=== PATIENT | male | born 1940 | race Caucasian/White ===

== ENCOUNTER 2021-03-18 07:24 | Day surgery (SDC) | payer OTHER, SELFPAY ==
[2021-03-18 07:47] VITALS: BP 136/72; PULSE 72; RESP 16; TEMP 36.1; O2SAT 100
--- NOTE | 2021-03-18 07:52 | W.ANESPRE ---
General Info Date of Service Date Performed: 03/18/21 Height: 5 ft 11 in Weight: 72.3 kg Body Mass Index (BMI): 22.2 Surgical Procedure: Operation Date: 03/18/21 09:40 Proposed Procedures Side Surgeon p Cataract Extraction with IOL Implant Right Yordy Nickerson MD Meds Allergies and Home Medications Allergies Allergy/AdvReac Type Severity Reaction Status Date / Time No Known Allergies Allergy Unverified 03/15/21 14:59 Home Medication Medication Instructions Recorded bupropion HCl 300 mg PO DAILY 03/15/21 cholecalciferol (vitamin D3) 50 mcg PO DAILY 03/15/21 [Vitamin D3] finasteride 5 mg PO DAILY 03/15/21 ibuprofen 200 mg PO DAILY PRN 03/15/21 loratadine 10 mg PO DAILY 03/15/21 lorazepam 0.5 mg PO Q6H PRN 03/15/21 lutein 20 mg PO DAILY 03/15/21 omega-3 fatty acids [Fish Oil] 1 cap PO DAILY 03/15/21 phytonadione (vitamin K1) 100 mcg PO DAILY 03/15/21 sennosides-docusate sodium [Senna 1 cap PO DAILY 03/15/21 Plus] tadalafil 20 mg PO DIRECTED PRN 03/15/21 Current Visit Medications: Current Medications Generic Name Dose Route Start Last Admin Trade Name Freq PRN Reason Stop Dose Admin Acetaminophen 1,000 mg 03/18/21 06:00 Acetaminophen 500 Mg Tab PO Q4H PRN PRN Miscellaneous Medication 0 ml 03/18/21 06:00 Prednisolone 1%, Moxifloxacin 0.5%, Nepafenac 0.1% 5ml Btl OD DIRECTED [facility] Miscellaneous Medication 0 ml 03/18/21 06:00 Tropicam./Phenyleph. 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 Posterior vitreous detachment, left eye Presbyopia Vertigo Surgical History Surgical History (Updated 03/18/21 @ 07:44 by Jesse Childers) History of appendectomy History of tonsillectomy Tobacco Smoking/Tobacco Use Status: Never Alcohol Alcohol Intake: current Alcohol intake frequency: holidays/special occasions only Substance Use Substance use type: does not use Vital Signs and Lab Results Vital Signs Most Recent Vital Signs in EMR: Most Recent Vital Signs Temp Pulse Resp BP Pulse Ox 36.1 C L 72 16 136/72 100 03/18/21 07:47 03/18/21 07:47 03/18/21 07:47 03/18/21 07:47 03/18/21 07:47 Lab Results Blood Type / Crossmatch: No Data to Display Complete Blood Count: No Data to Display Complete Metabolic Panel: No Data to Display Liver Function Panel: No Data to Display Coagulation Panel: No Data to Display Cardiac Panel: No Data to Display Arterial Blood Gas: No Data to Display Venous Blood Gas: No Data to Display Pancreas Panel: No Data to Display Thyroid Panel: No Data to Display Infectious Disease: No Data to Display Blood Cultures: No Data to Display Toxicology Panel: No Data to Display Anesthesia Assessment and Plan Anesthesia History Personal History: No History of Anesthesia Complications Family History: No Family History of Anesthesia Complications Exercise Tolerance Exercise Tolerance: Metabolic Equivalents>4 Pertinent Negatives Pertinent Negatives: No Symptoms of GERD Cardiac & Pulmonary Exam Cardiac Exam: Normal S1/S2 Heart Sounds Pulmonary Exam: Clear Bilateral Breath Sounds Airway Exam Known Difficult Airway: No Mallampati Class: 2 Mouth Opening: Normal (> 3cm) Thyromental Distance: Greater than 3 cm Neck Range of Motion: Full ROM Neck Circumference: Normal Teeth Condition: Normal Dentition ASA Classification ASA Score: ASA 2 Emergency Case?: No NPO Status NPO Status: NPO Clears >2 hours, Solids >8 hours Anesthesia Plan Resuscitation Status: Full Code Anesthesia Technique: MAC Anesthesia Airway Planned: Natural Airway Monitors Used: Standard Monitors
[2021-03-18] MEDS: Tropicam./Phenyleph. (1/2.5%) 5 ML BTL OD ×3 (07:53→08:05)
[2021-03-18 08:16] VITALS: BMI 22.2
[2021-03-18] MEDS: Lidocaine 2% Jelly 6 ML SYR (10:10)
[2021-03-18] MEDS: Tetracaine 0.5% 4 ML BTL OD (10:10)
[2021-03-18] MEDS: Balanced Salt Soln.-PLUS 500 ML BAG (10:10)
[2021-03-18] MEDS: Duovisc Viscoelastic System EACH 1 EACH (10:10)
[2021-03-18] MEDS: Lidocaine 1% Pres-Free 5 ML VIAL (10:10)
[2021-03-18] MEDS: Povidone-Iodine Ophth 30 ML BTL (10:10)
--- NOTE | 2021-03-18 10:21 | W.ANESPOSTOP ---
Postoperative Evaluation Date, Time and Location Date Performed: 03/18/21 Time Performed: 10:30 Patient Location: Day Surgery Unit Vital Signs Most Recent Imported Vital Signs: Most Recent Vital Signs Temp Pulse Resp BP Pulse Ox 36.1 C L 72 16 136/72 100 03/18/21 07:47 03/18/21 07:47 03/18/21 07:47 03/18/21 07:47 03/18/21 07:47 Most Recent Manually Entered Vital Signs: Adult Blood Pressure: 137/86 Heart Rate: 70 Respirations: 16 Oxygen Saturation (%): 100 Temperature (C): 36.2 C Pain Score (0-10 Scale): 0 Pain Score Most Recent Pain Score: Most Recent Pain Score Pain Level 0 03/18/21 07:47 Assessment Mental Status: Awake (Alert & Oriented to Patient Baseline) Airway and Respiratory Function: Patent airway with normal (patient baseline) respiratory exam Cardiovascular Function: Hemodynamically Stable Hydration Status: Adequately Hydrated Nausea & Vomiting: No Nausea or Vomiting Pain: Pt. Denies Any Pain Peripheral Nerve Block: Other (Local by Dr. Nickerson) Postoperative Comments:: Patient would like MKO next time
--- NOTE | 2021-03-18 10:32 | W.PM.DSUDISC ---
Discharge Plan Disposition Patient Disposition: HOME Condition: Good Discharge Details Attending Provider: Yordy Nickerson Primary Care Provider: Yordy Russ Home Meds and New Rx's Prescriptions: No Action ibuprofen 200 mg Capsule 200 mg PO DAILY PRNRF: 0 lorazepam 0.5 mg Tablet 0.5 mg PO Q6H PRNRF: 0 phytonadione (vitamin K1) 100 mcg Tablet 100 mcg PO DAILY RF: 0 finasteride 5 mg Tablet 5 mg PO DAILY RF: 0 loratadine 10 mg Tablet 10 mg PO DAILY RF: 0 Fish Oil Capsule 1 cap PO DAILY RF: 0 bupropion HCl 300 mg Tablet Extended Release 24 Hr 300 mg PO DAILY RF: 0 tadalafil 20 mg Tablet 20 mg PO DIRECTED PRNRF: 0 cholecalciferol (vitamin D3) [Vitamin D3] 25 mcg (1,000 unit) Tablet 50 mcg PO DAILY RF: 0 lutein 20 mg Tablet 20 mg PO DAILY RF: 0 Senna Plus 8.6-50 mg Capsule 1 cap PO DAILY RF: 0 Discharge Instructions Stand Alone Forms: Post-op Topical Cataract, Shant Dudley ([facility]) Discharge Orders Discharge Orders: Discharge Order (Routine); Ordered 03/18/21 Ordered By: Yordy Nickerson DS: Diagnosis Discharge Diagnosis (1) Nuclear sclerotic cataract of right eye: Status: Resolved
[2021-03-18 10:33] VITALS: BP 137/86; PULSE 70; RESP 16; TEMPC 36.2; O2SAT 100
--- NOTE | 2021-03-18 10:33 | ROE_ITS ---
Date of service: 03/18/21 Time of Service: 10:33 Operative Note Operative Note DATE OF PROCEDURE: 03/18/21 PRE-OP DIAGNOSIS: Nuclear cataract/posterior subcapsular cataract, right eye POST-OP DIAGNOSIS: same PROCEDURE: Cataract extraction using phacoemulsification with intraocular lens implant, right eye SURGEON: Yordy Nickerson ANESTHESIA TYPE: Local By Surgeon and MAC Refer to Anesthesia Record ESTIMATED BLOOD LOSS: 0 PATHOLOGY: none sent COMPLICATIONS: None Patient was transported to: same day Patient's condition: stable Implants: Adan & Adan/MADIHA Tecnis [id number] Indications: Progressive visual loss due to cataract, right eye Procedure Description: CATARACT SURGERY OPERATIVE REPORT PREOPERATIVE DIAGNOSIS: 1. Nuclear/posterior subcapsular cataract, right eye POSTOPERATIVE DIAGNOSIS: Same OPERATION: 1. Cataract extraction using phacoemulsification with posterior chamber intraocular lens implant, right eye. IOL: IOL Coating Mixer Supervisor/Model: Adan [employer] Adan / MADIHA Tecnis [id number] IOL Power: + 23.5 diopters IOL Serial Number: [id number] Optic Diameter: 6.0mm Haptic/Overall Diameter: 13.0mm PHACO INFO: Mahesh Marcato Digital Solutionsurion Vision System with OZil and Active Fluidics Cumulative Dispersed Energy (CDE): 14.40 seconds SURGEON: Yordy Nickerson MD, JAVIER ANESTHESIA: Monitored Anesthesia Care (MAC), with local sub-tenon's anesthetic infiltration COMPLICATIONS: None SPECIMENS: None INDICATIONS FOR PROCEDURE: The patient is a 80-year-old gentleman with history of diminished visual acuity in his right eye secondary to the development of significant nuclear cataract. He also has posterior subcapsular cataract as well. The option of cataract surgery was offered to the patient and he wished to proceed. PROCEDURE: The correct surgical eye was identified and marked as the right eye and the pupil was dilated in the preoperative area using mydriatics and cycloplegics. The dilated pupil size was 7.0 mm. He elected to proceed without oral sedation.. The patient was brought to the operating room where cardiop ulmonary monitoring was instituted and surgical time-out was performed, confirming the correct operative eye and IOL power. Topical anesthesia was administered and ophthalmic povidone-iodine 5% was instilled into the conjunctival fornices. Lidocaine gel was applied to the cornea and the irene-ocular area was prepped with Betadine 10% solution and draped in the usual sterile fashion for intraocular surgery, including an aperture drape. A Tegaderm transparent film dressing was cut in half and used to cover the lashes and lid margins. Care was taken to sequester the lashes and lid margins under the Tegaderm dressing. A lid speculum was placed between the lids of the operative eye and the Rafiq-Loree operating microscope was maneuvered into position. Sugar scissors were then used to make a conjunctival buttonhole approximately 6mm posterior to the limbus in the inferonasal quadrant. Blunt dissection was carried out to expose bare sclera, and a blunt-tipped sub-tenon?s anesthesia cannula was introduced and passed posteriorly along the globe where non- preserved plain lidocaine was injected into posterior sub-Tenon?s space. A sideport knife was used to make a paracentesis port inferotemporally. Intraocular phenylephrine/lidocaine was injected into the anterior chamber. The anterior chamber was filled with viscoelastic. A 2.4mm keratome knife was used to create a half-thickness groove at the limbus and then to construct a three- plane near-clear corneal tunnel extending 2.0mm into clear cornea superiortemporally. A flap was raised on the anterior capsule and capsulorhexis forceps were used to complete a continuous curvilinear capsulorhexis of 5.0 mm. Balanced salt solution was then used to perform cortical cleaving hydrodissection and nuclear hydrodelineation until the lens could be freely rotated within the capsular bag. The lens nucleus was then disassembled and removed within the capsular bag and iris plane using phacoemulsification. Residual cortical material was removed using the I/A handpiece. The posterior capsule was carefully polished to remove as much residual lens epithelial cells as safely possible. The capsular bag was then inflated and the anterior chamber deepened with viscoelastic. The lens implant described above was inserted into the capsular bag using the MADIHA [place] Injector. A Kuglen hook was used to dial the IOL into position. Residual viscoelastic was then removed first from posterior to the IOL, then from the anterior chamber using the I/A handpiece. The lens implant was noted to center nicely within the capsular bag. The incisions were stromally hydrated, and the anterior chamber was reformed using BSS. Then 0.5cc of moxifloxacin 1.0mg/ml were injected into the capsular bag and anterior chamber. The incisions were checked with a Weck spear and found to be secure. Several drops of ophthalmic povidone-iodine 5% were then applied to the eye followed by two drops of Imprimis combination prednisolone/moxifloxacin/nepafenac solution. The drapes were removed and a clear plastic protective eye shield was placed over the eye. The patient was then returned to Same Day Surgery in stable condition.
[2021-03-18 10:35] VITALS: BP 137/86; PULSE 72; RESP 16; TEMP 36.2; O2SAT 97
== END 2021-03-18 10:50 | disposition home or self-care (01) ==
PROVIDERS: PCP Internal Medicine; Visit Provider Ophthalmology
PROC: (CPT 66984; principal; 2021-03-18 09:30)
DX: H25.11 Age-related nuclear cataract, right eye (principal)
CPT/HCPCS: 66984; V2632

== ENCOUNTER 2021-04-01 09:33 | Day surgery (SDC) | payer OTHER, SELFPAY ==
[2021-04-01 09:48] VITALS: BP 129/74; PULSE 66; RESP 16; TEMP 36.3; O2SAT 99
--- NOTE | 2021-04-01 09:50 | W.ANESPRE ---
General Info Date of Service Date Performed: 04/01/21 Height: 5 ft 11 in Weight: 72.3 kg Body Mass Index (BMI): 22.2 Surgical Procedure: Operation Date: 04/01/21 12:40 Proposed Procedures Side Surgeon p Cataract Extraction with IOL Implant Left Yordy Nickerson MD Meds Allergies and Home Medications Allergies Allergy/AdvReac Type Severity Reaction Status Date / Time No Known Allergies Allergy Unverified 04/01/21 09:45 Home Medication Medication Instructions Recorded bupropion HCl 300 mg PO DAILY 03/15/21 cholecalciferol (vitamin D3) 50 mcg PO DAILY 03/15/21 [Vitamin D3] finasteride 5 mg PO DAILY 03/15/21 ibuprofen 200 mg PO DAILY PRN 03/15/21 loratadine 10 mg PO DAILY 03/15/21 lorazepam 0.5 mg PO Q6H PRN 03/15/21 lutein 20 mg PO DAILY 03/15/21 omega-3 fatty acids [Fish Oil] 1 cap PO DAILY 03/15/21 phytonadione (vitamin K1) 100 mcg PO DAILY 03/15/21 sennosides-docusate sodium [Senna 1 cap PO DAILY 03/15/21 Plus] tadalafil 20 mg PO DIRECTED PRN 03/15/21 Current Visit Medications: Current Medications Generic Name Dose Route Start Last Admin Trade Name Freq PRN Reason Stop Dose Admin Acetaminophen 1,000 mg 04/01/21 06:00 Acetaminophen 500 Mg Tab PO Q4H PRN PRN Miscellaneous Medication 0 ml 04/01/21 06:00 Prednisolone 1%, Moxifloxacin 0.5%, Nepafenac 0.1% 5ml Btl OS DIRECTED [facility] Miscellaneous Medication 0 ml 04/01/21 06:00 Tropicam./Phenyleph. 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 Posterior vitreous detachment, left eye Presbyopia Vertigo Surgical History Surgical History History of appendectomy History of tonsillectomy Tobacco Smoking/Tobacco Use Status: Never Alcohol Alcohol Intake: current Alcohol intake frequency: holidays/special occasions only Substance Use Substance use type: does not use Vital Signs and Lab Results Lab Results Blood Type / Crossmatch: No Data to Display Complete Blood Count: No Data to Display Complete Metabolic Panel: No Data to Display Liver Function Panel: No Data to Display Coagulation Panel: No Data to Display Cardiac Panel: No Data to Display Arterial Blood Gas: No Data to Display Venous Blood Gas: No Data to Display Pancreas Panel: No Data to Display Thyroid Panel: No Data to Display Infectious Disease: No Data to Display Blood Cultures: No Data to Display Toxicology Panel: No Data to Display Anesthesia Assessment and Plan Anesthesia History Personal History: No History of Anesthesia Complications Family History: No Family History of Anesthesia Complications Exercise Tolerance Exercise Tolerance: Metabolic Equivalents>4 Pertinent Negatives Pertinent Negatives: No Symptoms of GERD Cardiac & Pulmonary Exam Cardiac Exam: Normal S1/S2 Heart Sounds Pulmonary Exam: Clear Bilateral Breath Sounds Airway Exam Known Difficult Airway: No Mallampati Class: 2 Mouth Opening: Normal (> 3cm) Thyromental Distance: Greater than 3 cm Neck Range of Motion: Full ROM Neck Circumference: Normal Teeth Condition: Normal Dentition ASA Classification ASA Score: ASA 2 Emergency Case?: No NPO Status NPO Status: NPO Clears >2 hours, Solids >8 hours Anesthesia Plan Resuscitation Status: Full Code Anesthesia Technique: MAC Anesthesia Airway Planned: Natural Airway Monitors Used: Standard Monitors
[2021-04-01 09:51] VITALS: BMI 22.2
[2021-04-01] MEDS: Tropicam./Phenyleph. (1/2.5%) 5 ML BTL OS ×3 (09:56→10:07)
--- NOTE | 2021-04-01 10:18 | W.ANESPRE ---
General Info Date of Service Date Performed: 04/01/21 Height: 5 ft 11 in Weight: 72.3 kg Body Mass Index (BMI): 22.2 Surgical Procedure: Operation Date: 04/01/21 12:40 Proposed Procedures Side Surgeon p Cataract Extraction with IOL Implant Left Yordy Nickerson MD Meds Allergies and Home Medications Allergies Allergy/AdvReac Type Severity Reaction Status Date / Time No Known Allergies Allergy Unverified 04/01/21 09:45 Home Medication Medication Instructions Recorded bupropion HCl 300 mg PO DAILY 03/15/21 cholecalciferol (vitamin D3) 50 mcg PO DAILY 03/15/21 [Vitamin D3] finasteride 5 mg PO DAILY 03/15/21 ibuprofen 200 mg PO DAILY PRN 03/15/21 loratadine 10 mg PO DAILY 03/15/21 lorazepam 0.5 mg PO Q6H PRN 03/15/21 lutein 20 mg PO DAILY 03/15/21 omega-3 fatty acids [Fish Oil] 1 cap PO DAILY 03/15/21 phytonadione (vitamin K1) 100 mcg PO DAILY 03/15/21 sennosides-docusate sodium [Senna 1 cap PO DAILY 03/15/21 Plus] tadalafil 20 mg PO DIRECTED PRN 03/15/21 Current Visit Medications: Current Medications Generic Name Dose Route Start Last Admin Trade Name Freq PRN Reason Stop Dose Admin Acetaminophen 1,000 mg 04/01/21 06:00 Acetaminophen 500 Mg Tab PO Q4H PRN PRN Miscellaneous Medication 0 ml 04/01/21 06:00 Prednisolone 1%, Moxifloxacin 0.5%, Nepafenac 0.1% 5ml Btl OS DIRECTED [facility] Miscellaneous Medication 0 ml 04/01/21 06:00 04/01/21 10:07 Tropicam./Phenyleph. 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 Posterior vitreous detachment, left eye Presbyopia Vertigo Surgical History Surgical History History of appendectomy History of tonsillectomy Tobacco Smoking/Tobacco Use Status: Never Alcohol Alcohol Intake: current Alcohol intake frequency: holidays/special occasions only Substance Use Substance use type: does not use Vital Signs and Lab Results Vital Signs Most Recent Vital Signs in EMR: Most Recent Vital Signs Temp Pulse Resp BP Pulse Ox 36.3 C L 66 16 129/74 99 04/01/21 09:48 04/01/21 09:48 04/01/21 09:48 04/01/21 09:48 04/01/21 09:48 Lab Results Blood Type / Crossmatch: No Data to Display Complete Blood Count: No Data to Display Complete Metabolic Panel: No Data to Display Liver Function Panel: No Data to Display Coagulation Panel: No Data to Display Cardiac Panel: No Data to Display Arterial Blood Gas: No Data to Display Venous Blood Gas: No Data to Display Pancreas Panel: No Data to Display Thyroid Panel: No Data to Display Infectious Disease: No Data to Display Blood Cultures: No Data to Display Toxicology Panel: No Data to Display Anesthesia Assessment and Plan Anesthesia History Personal History: No History of Anesthesia Complications Family History: No Family History of Anesthesia Complications Exercise Tolerance Exercise Tolerance: Metabolic Equivalents>4 Pertinent Negatives Pertinent Negatives: No Symptoms of GERD Cardiac & Pulmonary Exam Cardiac Exam: Normal S1/S2 Heart Sounds Pulmonary Exam: Clear Bilateral Breath Sounds Airway Exam Known Difficult Airway: No Mallampati Class: 2 Mouth Opening: Normal (> 3cm) Thyromental Distance: Greater than 3 cm Neck Range of Motion: Full ROM Neck Circumference: Normal Teeth Condition: Normal Dentition ASA Classification ASA Score: ASA 2 Emergency Case?: No NPO Status NPO Status: NPO Clears >2 hours, Solids >8 hours Anesthesia Plan Resuscitation Status: Full Code Anesthesia Technique: MAC Anesthesia Airway Planned: Natural Airway Monitors Used: Standard Monitors
[2021-04-01 10:20] VITALS: BMI 22.2
[2021-04-01] MEDS: Lidocaine 2% Jelly 6 ML SYR (11:04)
[2021-04-01] MEDS: Povidone-Iodine Ophth 30 ML BTL (11:04)
[2021-04-01] MEDS: Tetracaine 0.5% 4 ML BTL OS (11:04)
[2021-04-01] MEDS: Lidocaine 1% Pres-Free 5 ML VIAL (11:10)
[2021-04-01] MEDS: Duovisc Viscoelastic System EACH 1 EACH (11:13)
[2021-04-01] MEDS: Balanced Salt Soln.-PLUS 500 ML BAG (11:13)
[2021-04-01 11:30] VITALS: BP 114/72; PULSE 68; RESP 16; TEMP 36.3; O2SAT 99
--- NOTE | 2021-04-01 11:31 | W.PM.DSUDISC ---
Discharge Plan Disposition Patient Disposition: HOME Condition: Good Discharge Details Attending Provider: Yordy Nickerson Primary Care Provider: Yordy Russ Home Meds and New Rx's Prescriptions: No Action ibuprofen 200 mg Capsule 200 mg PO DAILY PRNRF: 0 lorazepam 0.5 mg Tablet 0.5 mg PO Q6H PRNRF: 0 phytonadione (vitamin K1) 100 mcg Tablet 100 mcg PO DAILY RF: 0 finasteride 5 mg Tablet 5 mg PO DAILY RF: 0 loratadine 10 mg Tablet 10 mg PO DAILY RF: 0 Fish Oil Capsule 1 cap PO DAILY RF: 0 bupropion HCl 300 mg Tablet Extended Release 24 Hr 300 mg PO DAILY RF: 0 tadalafil 20 mg Tablet 20 mg PO DIRECTED PRNRF: 0 cholecalciferol (vitamin D3) [Vitamin D3] 25 mcg (1,000 unit) Tablet 50 mcg PO DAILY RF: 0 lutein 20 mg Tablet 20 mg PO DAILY RF: 0 Senna Plus 8.6-50 mg Capsule 1 cap PO DAILY RF: 0 Discharge Instructions Stand Alone Forms: Post-op Topical Cataract, Shant Dudley ([facility]) Discharge Orders Discharge Orders: Discharge Order (Routine); Ordered 04/01/21 Ordered By: Yordy Nickerson DS: Diagnosis Discharge Diagnosis (1) Nuclear sclerotic cataract of left eye: Status: Resolved
--- NOTE | 2021-04-01 11:33 | ROE_ITS ---
Date of service: 04/01/21 Time of Service: 11:33 Operative Note Operative Note DATE OF PROCEDURE: 04/01/21 PRE-OP DIAGNOSIS: Nuclear cataract, left eye POST-OP DIAGNOSIS: same PROCEDURE: Cataract extraction using phacoemulsification with intraocular lens implant, left eye SURGEON: Yordy Nickerson ANESTHESIA TYPE: Local By Surgeon and MAC Refer to Anesthesia Record PATHOLOGY: none sent COMPLICATIONS: None Patient was transported to: same day Patient's condition: stable Implants: Adan and Adan / [employer] Tecnis [id number] Indications: Progressive decreased vision due to cataract, left eye, with poor red reflex Procedure Description: CATARACT SURGERY OPERATIVE REPORT PREOPERATIVE DIAGNOSIS: 1. Nuclear cataract, left eye POSTOPERATIVE DIAGNOSIS: Same OPERATION: 1. Cataract extraction using phacoemulsification with posterior chamber intraocular lens implant, left eye. 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 He has already undergone cataract surgery in the right eye and is doing well postop eratively. He now presents for cataract surgery in the left eye. PROCEDURE: The correct surgical eye was identified and marked as the left eye and the pupil was dilated in the preoperative area using mydriatics and cycloplegics. The dilated pupil size was 7.0 mm. Oral sedation was administered in the form of an Imprimis MKO Melt (midazolam 3mg/ketamine 25mg/ondansetron 2mg ). The patient was brought to the operating room where cardiopulmonary monitoring was instituted and surgical time-out was performed, confirming the correct operative eye and IOL power. Topical anesthesia was administered and ophthalmic povidone-iodine 5% was instilled into the conjunctival fornices. Lidocaine gel was applied to the cornea and the irene-ocular area was prepped with Betadine 10% solution and draped in the usual sterile fashion for intraocular surgery, including an aperture drape. A Tegaderm transparent film dressing was cut in half and used to cover the lashes and lid margins. Care was taken to sequester the lashes and lid margins under the Tegaderm dressing. A lid speculum was placed between the lids of the operative eye and the Rafiq-Loree operating microscope was ma neuvered into position. Sugar scissors were then used to make a conjunctival buttonhole approximately 6mm posterior to the limbus in the inferonasal quadrant. Blunt dissection was carried out to expose bare sclera, and a blunt-tipped sub-tenon?s anesthesia cannula was introduced and passed posteriorly along the globe where non- preserved plain lidocaine was injected into posterior sub-Tenon?s space. A sideport knife was used to make a paracentesis port superiorly/superiortemporally. Intraocular phenylephrine/lidocaine was injected int the anterior chamber.. Air was then injected into the anterior chamber, followed by Vision Blue, which was painted over the anterior capsule and then irrigated out using BSS. The anterior chamber was filled with viscoelastic. A 2.4mm keratome knife was used to create a half-thickness groove at the limbus and then to construct a three-plane near-clear corneal tunnel extending 2.0mm into clear cornea at the 3:00 position. A flap was raised on the anterior capsule and capsulorhexis forceps were used to complete a continuous curvilinear capsulorhexis of 5.5 mm. Balanced salt solution was then used to perform cortical cleaving hydrodissection and nuclear hydrodelineation until the lens could be freely rotated within the capsular bag. The lens nucleus was then disassembled and removed within the capsular bag and iris plane using phacoemulsification. Residual cortical material was removed using the 45-degree angled silicone I/A tip with 0.3mm port. The posterior capsule was carefully polished to remove as much residual lens epithelial cells as safely possible. The capsular bag was then inflated and the anterior chamber deepened with viscoelastic. The lens implant described above was inserted into the capsular bag using the MADIHA [place] Injector. A Kuglen hook was used to dial the IOL into position. Residual viscoelastic was then removed first from posterior to the IOL, then from the anterior chamber using the I/A handpiece. The lens implant was noted to center nicely within the capsular bag. The incisions were stromally hydrated, and the anterior chamber was reformed using BSS. Then 0.5cc of moxifloxacin 1.0mg/ml were injected into the capsular bag and anterior chamber. The incisions were checked with a Weck spear and found to be secure. Several drops of ophthalmic povidone-iodine 5% were then applied to the eye followed by two drops of Imprimis combination prednisolone/moxifloxacin/nepafenac solution. The drapes were removed and a clear plastic protective eye shield was placed over the eye. The patient was then returned to Same Day Surgery in stable condition.
--- NOTE | 2021-04-01 11:58 | W.ANESPOSTOP ---
Postoperative Evaluation Date, Time and Location Date Performed: 04/01/21 Time Performed: 11:40 Patient Location: Day Surgery Unit Vital Signs Most Recent Imported Vital Signs: Most Recent Vital Signs Temp Pulse Resp BP Pulse Ox 36.3 C L 68 16 114/72 99 04/01/21 11:30 04/01/21 11:30 04/01/21 11:30 04/01/21 11:30 04/01/21 11:30 Pain Score Most Recent Pain Score: Most Recent Pain Score Pain Level 0 04/01/21 11:30 Assessment Mental Status: Awake (Alert & Oriented to Patient Baseline) Airway and Respiratory Function: Patent airway with normal (patient baseline) respiratory exam Cardiovascular Function: Hemodynamically Stable Hydration Status: Adequately Hydrated Nausea & Vomiting: No Nausea or Vomiting Pain: Pt. Denies Any Pain Peripheral Nerve Block: Patient did not receive a nerve block
[2021-04-01 12:00] VITALS: BP 114/65; PULSE 72; RESP 16; TEMP 36.3; O2SAT 99
== END 2021-04-01 09:34 | disposition home or self-care (01) ==
PROVIDERS: PCP Internal Medicine; Visit Provider Ophthalmology
PROC: (CPT 66984; principal; 2021-04-01 12:30)
DX: H25.12 Age-related nuclear cataract, left eye (principal)
CPT/HCPCS: 66984; V2632